=== PATIENT | female | born 1965 | race African-American/Black ===

== ENCOUNTER 2020-07-16 06:45 | Outpatient (REF) | payer OTHER, SELFPAY | END 2020-07-16 06:46 | disposition home or self-care (01) | LOC: HO.LAB 06:45 | PROVIDERS: Visit Provider Internal Medicine | DX: Z20.828 Contact with and (suspected) exposure to other viral communicable diseases (principal) | CPT/HCPCS: 87635 ==

== ENCOUNTER 2020-08-18 07:07 | Outpatient (REF) | payer OTHER, SELFPAY | END 2020-08-18 07:08 | disposition home or self-care (01) | LOC: HO.LAB 07:07 | PROVIDERS: Visit Provider Internal Medicine | DX: Z20.828 Contact with and (suspected) exposure to other viral communicable diseases (principal) | CPT/HCPCS: C9803; U0003 ==